=== PATIENT | male | born 1945 | race Caucasian/White ===

== ENCOUNTER 2025-02-08 13:45 | Emergency (ER) | payer MEDICARE ==
[2025-02-08] MEDS ORDERED: Sodium Chloride 0.9% 1000 ML 0 ML ONE (14:08)
[2025-02-08] MEDS ORDERED: Sodium Chloride 0.9% 1000 ML 1,000 ML ONE (14:18)
[2025-02-08] MEDS: Sodium Chloride 0.9% 1000 ML 1,000 ML IV STA (14:34)
[2025-02-08 14:41] LABS: BASOPHIL % 0.5 % (0.2-1.2); Basophil (Absolute #) 0.04 x10^3/uL (0.01-0.08); Eosinophil % 0.9 % (0.8-7.0); Eosinophil (Absolute #) 0.07 x10^3/uL (0.04-0.54); Hematocrit 37.3 % (40.1-51.0); Hemoglobin 12.9 g/dL (13.7-17.5); IMMATURE GRAN # 0.04 x10^3u/L (0.001-0.031); IMMATURE GRAN % 0.5 % (0.001-0.429); Lymphocyte (Absolute #) 0.52 x10^3/uL (1.32-3.57); Lymphocytes % 6.4 % (21.8-53.1); Mean Cell Volume 93.7 fL (79.0-92.2); Mean Corpuscular Hemoglobin 32.4 pg (25.7-32.2); Mean Corpuscular Hgb Concent. 34.6 g/dL (32.3-36.5); Mean Platelet Volume 11.5 fL (9.4-12.4); Monocytes % 6.1 % (5.3-12.2); Neutrophil % 85.6 % (34.0-67.9); Platelet Count 194 x10^3/uL (163-337); Red Blood Count 3.98 x10^6/uL (4.63-6.08); Red Cell Distribution Width 13.2 % (11.6-14.4); White Blood Count 8.2 x10^3/uL (4.23-9.07)
--- NOTE | 2025-02-08 14:47 | ERPHSYRPT ---
- History of Present Illness Time Seen by Provider: 02/08/25 14:44 Historian: patient Exam Limitations: clinical condition Patient Subjective Stated Complaint: PT STATES THAT HE COULD NOT URINATE AND HAS BEEN CONSTIPATED, CAUSING LOWER ABD PAIN Triage Nursing Assessment: PT AMB PER SELF, HUNCHED OVER DUE TO PAIN IN LOWER ABD. PT MOANING AND VERBALLY STATING HE WAS IN PAIN. PT BLADDER NON DISTENDED. ABD SOFT UPON PALPATION, BSX4. PT COLOR TRUE TO RACE, NO DIPHORESIS NOTED, PT RATES PAIN AT 10/10. Physician History: Patient is a 79-year-old male with significant past medical history of hypertension chronic constipation suddenly unable to urinate since 2 to 3 hours ago. He started having a lower abdominal pain so he came to the emergency room. In the emergency room he was complaining of lower abdominal pain and was unable to urinate. Within few minutes patient is catheterized and has about 800 cc of urine output. Once patient catheterize his is feeling much better but states that he has some constipation issues. His abdominal pain is resolved. Timing/Duration: today Abdominal Pain Onset Location: suprapubic Pain Radiation: no radiation Modifying Factors: Improves With: nothing Associated Symptoms: denies symptoms Previous symptoms: no prior history Allergies/Adverse Reactions: No Known Drug Allergies Allergy (Unverified 02/08/25 15:01) Hx Tetanus, Diphtheria Vaccination/Date Given: Yes Hx Influenza Vaccination/Date Given: Yes Hx Pneumococcal Vaccination/Date Given: Yes Immunizations Up to Date: Yes Travel Risk - International Travel Have you traveled outside of the country in past 3 weeks: No - Emerging Infectious Disease Are you exhibiting symptoms associated with any current EIDs: No - Review of Systems Constitutional: No Fever, No Chills Eyes: No Symptoms Ears, Nose, & Throat: No Symptoms Respiratory: No Cough, No Dyspnea Cardiac: No Chest Pain, No Edema, No Syncope Abdominal/Gastrointestinal: Constipation, No Abdominal Pain, No Nausea, No Vomiting, No Diarrhea Genitourinary Symptoms: Urinary Retention, No Dysuria Musculoskeletal: No Back Pain, No Neck Pain Skin: No Rash Neurological: No Dizziness, No Focal Weakness, No Sensory Changes Psychological: No Symptoms Endocrine: No Symptoms All Other Systems: Reviewed and Negative - Past Medical History Pertinent Past Medical History: Yes - Social History Smoking Status: Never smoker Exposure to second hand smoke: No Drug Use: none - Social Determinants of Health Will the patient participate in the screening: Yes Do you worry about a steady place to live?: No Do you have any problems with any of the following?: No known problems In the past 12 months,have you had to go without utilities?: No Transportation Issues: No Has anyone in your support network made you feel unsafe?: No Have you or anyone in your house had to go w/o enough food: No - Nursing Vital Signs Nursing Vital Signs: Initial Vital Signs Temperature 97 F 02/08/25 14:15 Pulse Rate 71 02/08/25 14:15 Respiratory Rate 18 02/08/25 14:15 Blood Pressure 164/81 02/08/25 14:15 O2 Sat by Pulse Oximetry 99 02/08/25 14:15 Pain Scale Pain Intensity 0 - Physical Exam General Appearance: no apparent distress, alert Eye Exam: PERRL/EOMI, eyes nml inspection Ears, Nose, Throat Exam: normal ENT inspection, pharynx normal, moist mucous membranes Neck Exam: normal inspection, non-tender, supple, full range of motion Respiratory Exam: normal breath sounds, lungs clear, No respiratory distress Cardiovascular Exam: regular rate/rhythm, normal heart sounds Gastrointestinal/Abdomen Exam: soft, No tenderness, No mass Male Genitalia Exam: prostate enlargement Back Exam: normal inspection, normal range of motion, No CVA tenderness, No vertebral tenderness Extremity Exam: normal inspection, normal range of motion, pelvis stable Neurologic Exam: alert, oriented x 3, cooperative, normal mood/affect, nml cerebellar function, sensation nml, No motor deficits Skin Exam: normal color, warm, dry SpO2: 99 - Radiology Exams Abdomen X-ray Interpretation: Interpreted by me, Reviewed by me, Negative Ordered Tests: Active Orders 24 hr Category Date Time Status Catheter-[place] STAT Care 02/08/25 13:57 Active IV Insertion STAT Care 02/08/25 13:59 Active OBSTR/ACUTE ABDOMEN SERIES Stat Exams 02/08/25 14:51 Taken CBC W DIFF Stat Lab 02/08/25 14:30 Completed CMP Stat Lab 02/08/25 14:30 Completed CULTURE,URINE Stat Lab 02/08/25 13:59 Ordered UA W/RFX UR CULTURE Stat Lab 02/08/25 14:00 Completed Medication Summary Discontinued Medications Generic Name Dose Route Start Last Admin Trade Name Freq PRN Reason Stop Dose Admin Sodium Chloride 1,000 mls @ 999 mls/hr 02/08/25 13:59 02/08/25 14:34 Sodium Chloride 0.9% 1000 Ml IV 02/08/25 14:59 999 mls/hr .Q1H1M STA Administration Sodium Chloride Confirm 02/08/25 14:08 Sodium Chloride 0.9% 1000 Ml Administered 02/08/25 14:09 Dose 1,000 mls @ ud .ROUTE .STK-MED ONE Sodium Chloride Confirm 02/08/25 14:18 Sodium Chloride 0.9% 1000 Ml Administered 02/08/25 14:19 Dose 1,000 mls @ ud .ROUTE .STK-MED ONE Magnesium Citrate 150 ml 02/08/25 14:59 02/08/25 15:20 Magnesium Citrate 296 Ml Solution PO 02/08/25 15:00 150 ml 1XONLY ONE Administration Magnesium Citrate Confirm 02/08/25 15:13 Magnesium Citrate 296 Ml Solution Administered 02/08/25 15:14 Dose 296 ml .ROUTE .STK-MED ONE Tamsulosin HCl 0.4 mg 02/08/25 15:09 02/08/25 15:18 Tamsulosin Hcl 0.4 Mg Cap PO 02/08/25 15:10 0.4 mg HS STA Administration Tamsulosin HCl Confirm 02/08/25 15:13 Tamsulosin Hcl 0.4 Mg Cap Administered 02/08/25 15:14 Dose 0.4 mg .ROUTE .STK-MED ONE Lab/Rad Data: Laboratory Result Diagrams 02/08/25 14:30 02/08/25 14:30 Laboratory Results 02/08/25 02/08/25 02/08/25 Range/Units 14:30 14:30 14:00 WBC 8.2 (4.23-9.07) x10^3/uL RBC 3.98 L (4.63-6.08) x10^6/uL Hgb 12.9 L (13.7-17.5) g/dL Hct 37.3 L (40.1-51.0) % MCV 93.7 H (79.0-92.2) fL MCH 32.4 H (25.7-32.2) pg MCHC 34.6 (32.3-36.5) g/dL RDW 13.2 (11.6-14.4) % Plt Count 194 (163-337) x10^3/uL MPV 11.5 (9.4-12.4) fL Gran % 85.6 H (34.0-67.9) % Immature Gran % (Auto) 0.5 H (0.001-0.429) % Nucleat RBC Rel Count 0.0 (0.00-0.2) % Eos # (Auto) 0.07 (0.04-0.54) x10^3/uL Immature Gran # (Auto) 0.04 H (0.001-0.031) x10^3u/L Absolute Lymphs (auto) 0.52 L (1.32-3.57) x10^3/uL Absolute Monos (auto) 0.50 (0.30-0.82) x10^3/uL Absolute Nucleated RBC 0.00 (0.00-0.012) x10^3u/L Lymphocytes % 6.4 L (21.8-53.1) % Monocytes % 6.1 (5.3-12.2) % Eosinophils % 0.9 (0.8-7.0) % Basophils % 0.5 (0.2-1.2) % Absolute Granulocytes 7.00 H (1.78-5.38) x10^3/uL Basophils # 0.04 (0.01-0.08) x10^3/uL Sodium 139 (135-145) mmol/L Potassium 3.9 (3.5-5.1) mmol/L Chloride 103 (98-107) mmol/L Carbon Dioxide 22 (22-30) mmol/L Anion Gap 18.3 H (5-15) MEQ/L BUN 14 (9-20) mg/dL Creatinine 0.97 (0.66-1.25) mg/dL Estimated GFR 78.9 ML/MIN Glucose 157 H (74-106) mg/dL Calcium 9.5 (8.4-10.2) mg/dL Total Bilirubin 1.50 H (0.2-1.3) mg/dL AST 26 (17-59) U/L ALT 21 (0-50) U/L Alkaline Phosphatase 67 (38-126) U/L Serum Total Protein 7.5 (6.3-8.2) g/dL Albumin 4.9 (3.5-5.0) g/dL Urine Color Yellow (Yellow) Urine Appearance Clear (Clear) Urine pH 6.5 (4.6-8.0) Ur Specific [place] 1.015 (1.005-1.030) Urine Protein Negative (Negative) Urine Glucose (UA) Negative (Negative) mg/dL Urine Ketones Negative (Negative) Urine Blood Negative (Negative) Urine Nitrite Negative (Negative) Urine Bilirubin Negative (Negative) Urine Urobilinogen 0.2 (0.2) mg/dL Ur Leukocyte Esterase Negative (Negative) U Hyaline Cast (Auto) NONE SEEN (0-2) /LPF Urine Microscopic RBC 0-2 (0-5) /HPF Urine Microscopic WBC 0-2 (0-5) /HPF Ur Epithelial Cells None Seen (None Seen) /HPF Urine Bacteria None Seen (None Seen) /HPF Urine Culture Reflexed ORDERED SEPARATELY (NO) Slides for Path Review YES - Progress Progress: improved Counseled pt/family regarding: lab results, diagnosis, need for follow-up, rad results Medical Desision Making - Diagnostic Testing Diagnostic test were ordered, analyzed, and reviewed by me: Yes Radiological Interpretation: Interpreted by me, Reviewed by me - Risk of complications The pt has a mod risk of morbidity or mortality based on: Need for prescription drug management - Departure Departure Disposition: Home Clinical Impression: Acute urinary tract infection, Indwelling [place] catheter present Constipation Qualifiers: Constipation type: slow transit constipation Qualified Code(s): K59.01 - Slow transit constipation Benign prostatic hyperplasia Qualifiers: Lower urinary tract symptom presence: symptoms present Lower urinary tract symptom detail: urinary retention Qualified Code(s): N40.1 - Benign prostatic hyperplasia with lower urinary tract symptoms Condition: Stable Critical Care Time: No Referrals: MJ MAC MD [Emergency Provider] - Follow up with PCP 1 day Instructions: Urinary Retention (DC) Additional Instructions: Discharge/Care Plan SALIMATOY Grijalva was seen on 02/08/25 in the Emergency Room. The patient was counseled regarding Diagnosis,Lab results, Imaging studies, need for follow up and when to return to the Emergency Room. Prescriptions given: Discharge Note I have spoken with the patient and/or caregivers. I have explained the patient's condition, diagnosis and treatment plan based on the information available to me at this time. I have answered the patient's and/or caregiver's questions and addressed any concerns. The patient and/or caregivers have as good understanding of the patient's diagnosis, condition and treatment plan as can be expected at this point. The vital signs have been stable. The patient's condition is stable and appropriate for discharge from the emergency department. The patient will pursue further outpatient evaluation with the primary care physician or other designated or consulting physician as outlined in the discharge instructions. The patient and/or caregivers are agreeable to this plan of care and follow-up instructions have been explained in detail. The patient and/or caregivers have received these instruction. The patient/and or caregivers are aware that any significant change in condition or worsening of symptoms should prompt an immediate return to this or the closest emergency department or call 911. SALIMATOY Valentine was seen on 02/08/25 n the Emergency Room. At that time you were treated for an emergent condition, during your visit Laboratory, Radiology and/or other procedures may have been ordered. It is very important that you follow-up with your Primary Care Physician NO FAMILY DOCTOR within the next 24- 48 hours to review your Emergency Room visit and the final results of testing that was ordered. Some test results such as Urine Cultures, Blood Cultures, and other cultures if ordered will not be finalized for 24-48 hours. If you do not have a Primary Care Provider please call the medical records department at [phone] ext [phone] to obtain a copy of your results or you may sign into our patient portal to obtain these results by visiting us @ [email or web address] and completing the following steps: 1. Click on the Patient Portal link 2. Click the Patient Self Enrollment Link to complete the enrollment form and entering your 3. Once the enrollment form is completed you will receive an email with a temporary ID and password at the email address you provided. 4. Next choose a user name and password. Your user name must be at least 4 richar acters long and your password must be at least 4 characters long. 5. Choose a security question from the list and provide your answer to the question. If you already have signed into the Health Portal you may access your Health Care Information 18/06 by the following steps: 1. Login to our website @ [email or web address] 2. Enter your original user name and password. FAQS [facility] Health Portal is an online tool that contains your Lab Results, Radiology Reports, Visit History, Discharge Instructions and Health Summary Lab and Radiology Results will not be available for 72 hours on the portal. The Portal is a secure site, passwords are encryted and URLs are re-written so they cannot be copied and pasted. You and authorized family members are the only ones who can access your Portal. Also there is a timeout feature that protects your information if you leave the Portal page open. If you have technical difficulty please use the Contact Us link on the page this will allow you to submit any questions you have regarding the Portal or you may contact the Medical Record Department at [phone]. Prescriptions: Tamsulosin HCl 0.4 mg [Flomax 0.4 MG] 0.4 mg PO DAILY 30 Days #30 cap Linaclotide [Linzess] 72 mcg PO DAILY #15 cap
[2025-02-08 14:50] LABS: Appearance Clear (Clear); Bacteria None Seen /HPF (None Seen); Bilirubin Negative (Negative); Blood Negative (Negative); Epithelial Cells None Seen /HPF (None Seen); Glucose, Urine Negative (Negative); Hyaline Casts NONE SEEN /LPF (0-2); Ketones Negative (Negative); Leukocyte Esterase Negative (Negative); Nitrite Negative (Negative); Ph 6.5 (4.6-8.0); Protein,Urine Dip Negative (Negative); RBC 0-2 /HPF (0-5); Specific Gravity 1.015 (1.005-1.030); Urobilinogen 0.2 mg/dL (0.2); WBC 0-2 /HPF (0-5)
[2025-02-08 14:56] LABS: ALBUMIN 4.9 g/dL (3.5-5.0); ANION GAP 18.3 MEQ/L (5-15); BILIRUBIN,TOTAL 1.5 mg/dL (0.2-1.3); Calcium 9.5 mg/dL (8.4-10.2); Creatinine 1 0.97 mg/dL (0.66-1.25); EST GLOMERULAR FILTRATION RATE 78.9 ML/MIN; Potassium 3.9 mmol/L (3.5-5.1); Total Protein 7.5 g/dL (6.3-8.2)
[2025-02-08] MEDS ORDERED: Flomax 0.4 MG ONE (15:13)
[2025-02-08] MEDS ORDERED: CITROMA 296 ML ONE (15:13)
[2025-02-08] MEDS: Flomax 0.4 MG PO STA (15:18)
[2025-02-08] MEDS: CITROMA 296 ML PO ONE (15:20)
[2025-02-08 16:07] LABS: Slide Review 1 YES
[2025-02-08 17:32] VITALS: BP 143/61; PULSE 70; RESP 18; TEMP 98; O2SAT 98
--- NOTE | 2025-02-08 19:45 | XRAY ---
Indication: Urinary retention. Comparison: None 2 view abdomen nonacute and nonobstructed with mild fecal debris in left hemicolon/rectum and [place] catheter. Solid organs unremarkable. Osseous structures intact with osteopenia, mild/moderate degenerative changes throughout spine, and mild scoliosis. Single PA chest inflated and clear. Heart not enlarged. Bony thorax intact with osteopenia, degenerative changes, and incompletely visualized right shoulder arthroplasty. Impression: Nonacute nonobstructed abdomen. Nonacute one view chest. Incidental chronic bony findings and [place] catheter.
== END 2025-02-08 17:45 | disposition home or self-care (01) ==
LOC: ED 13:45
DX: N39.0 Urinary tract infection, site not specified (principal); K59.01 Slow transit constipation; N40.1 Benign prostatic hyperplasia with lower urinary tract symptoms; Z97.8 Presence of other specified devices; R33.9 Retention of urine, unspecified; R10.30 Lower abdominal pain, unspecified; Z79.899 Other long term (current) drug therapy
CPT/HCPCS: 36415; 51702; 74022; 80053; 81001; 85025; 87086; 99284; A9270-GY